=== PATIENT | male | born 1960 | race Caucasian/White ===

== ENCOUNTER 2019-12-30 08:50 | Inpatient (IN) ==
--- NOTE | 2019-12-30 10:30 | PROVIDER DOCUMENTATION ---
HPI-General Adult - General Chief Complaint: Weakness Stated Complaint: flu like sx x4 days Time Seen by Provider: 12/30/19 09:01 Source: patient Allergies/Adverse Reactions: Patient Allergies Allergy/AdvReac Type Severity Reaction Status Date / Time tetracycline Allergy Severe RASH Verified 12/30/19 09:18 cephalexin [Cephalexin] Allergy Intermediate RASH Verified 12/30/19 09:18 Penicillins Allergy Intermediate RASH Verified 12/30/19 09:18 Home Medications: Home Medication List Medication Instructions Recorded Confirmed Last Taken Type Allopurinol 100 mg PO DAILY 06/17/14 12/29/19 02/10/18 History Apixaban [Eliquis] 5 mg PO BID 06/17/14 12/29/19 02/10/18 History Atorvastatin Calcium [Lipitor] 40 mg PO QHS 10/07/14 12/29/19 12/15/17 20:00 History Bupropion S.r. [Wellbutrin Sr] 100 mg PO BID 10/07/14 12/29/19 02/10/18 History Buspirone [Buspar] 5 mg PO TID 12/28/15 12/29/19 02/10/18 History Lisinopril/Hydrochlorothiazide 20 mg PO QAM 12/28/15 12/29/19 02/10/18 History [Lisinopril-Hctz 20-25 mg Tab] Cholecalciferol (Vit D3) [Vitamin 5,000 unit PO DIRECTED 12/16/17 12/29/19 02/10/18 History D] Fenofibrate 160 mg PO HS 02/10/18 12/29/19 02/09/18 21:00 History 160 mg Sotalol HCl [Sotalol] 80 mg PO BID #60 tab 02/13/18 12/29/19 Unknown Rx Budesonide/Formoterol Fumarate 2 puff INH DAILY 12/29/19 12/29/19 Unknown History [Symbicort 160-4.5 Mcg Inhaler] Meclizine HCl [Wal-Dram 2] 25 - 50 mg PO Q6H PRN PRN #20 tab 12/29/19 Unknown Rx Omeprazole 20 mg PO DAILY 12/29/19 12/29/19 Unknown History Sulfamethoxazole/Trimethoprim 1 ea PO BID #20 tab 12/29/19 Unknown Rx [Bactrim Ds Tablet] - History of Present Illness -Gen Adult Nature of Presenting Problems: [id number] presents to the ER with c/o increasing weakness and inability to ambulate. He reports he was seen here yesterday and was sent home with dizziness of unknown cause, unilateral headache and otitis media (left). Patient is very weak on exam, flushed, with productive cough. Location of Pain/Injury: reports: generalized Onset/Duration: reports: 4 days ago Timing: reports: getting worse Associated Symptoms: reports: cough, dizziness, sinus congestion/drainage, weakness, trouble walking Similar Symptoms Previously?: Yes Recently seen or treated by another doctor?: Yes Review of Systems - Adult - REVIEW OF SYSTEMS - ADULT Constitutional: reports: see HPI. denies: chills, fever Eyes: reports: see HPI, blurred vision Ears, Nose, Mouth & Throat: reports: no symptoms reported Cardiovascular: reports: no symptoms reported. denies: chest pain, orthopnea, palpitations Respiratory: reports: see HPI, cough Gastrointestinal: reports: no symptoms reported Genitourinary: reports: no symptoms reported Musculoskeletal: reports: no symptoms reported Integumentary: reports: no symptoms reported Neurological: reports: see HPI, dizziness/vertigo, headache/migraines, loss of balance Psychiatric: reports: no symptoms reported Endocrine: reports: no symptoms reported Hematologic/Lymphatic: reports: no symptoms reported Allergic/Immunologic: reports: no symptoms reported All Other Systems: Reviewed and Negative Past History - Adult - PAST MEDICAL HISTORY-ADULT Review of Records: reports: Old Records Reviewed, Nursing Assessment Review, Medications Reviewed, Social history reviewed & non-contributory. Major Childhood Illnesses: reports: denies history Cardiovascular: reports: A-Fib, HTN, hyperlipidemia, other (cardiac disorder) Respiratory: reports: COPD Gastrointestinal: reports: GERD Obstetrical/Gynecological: reports: denies history Genitourinary: reports: denies history Musculoskeletal: reports: arthritis (gout) Neurological: reports: CVA Psychiatric: reports: depression Endocrine/Immune: reports: denies history Other Conditions: reports: other (gout) - PRIOR SURGERIES/PROCEDURES Surgical/Procedure History: reports: CABG - IMMUNIZATION STATUS Childhood Immunizations: See Nurse Assessment Flu Vaccine: See Nurse Assessment - FAMILY HISTORY Family History: reviewed, not pertinent - SOCIAL HISTORY Smoking: cigarettes, greater than 1 pack/day Provider spent 3-5 mins advising pt. on dangers of tobacco.: Discussed manners to quit use, and f/u contacts for add'l counseling. Substance Use: denies Living Situation: family Physical Exam-General - PHYSICAL EXAM-ADULT Initial Vital Signs Reviewed: Yes - CONSTITUTIONAL General Appearance: moderate distress, slow to respond - EYES Eyes: anisocoria (left eye-pinpoint right eye-3) - HEAD, EARS, NOSE, MOUTH & THROAT HENMT: moist mucous membranes, TMs normal - NECK Neck: full range of motion, supple, normal inspection - RESPIRATORY Respiratory: lungs clear, normal breath sounds - CARDIOVASCULAR Cardiovascular: regular rate, rhythm, no JVD, no murmur - GASTROINTESTINAL (ABDOMEN) Abdominal Exam: non tender, soft - MUSCULOSKELETAL Extremity: normal range of motion, normal gait - SKIN Integumentary: normal color, warm/dry - NEUROLOGIC Neurologic: abnormal gait, other. negative: aphasia (generalized weakness), facial droop - PSYCHIATRIC Psych/Mental Status: normal mood/affect Progress - PLAN OF CARE/RESULTS Progress/Plan/Lab Results: Vital Signs - 8 hr 12/30/19 09:00 Temperature 97.4 F L Pulse Rate 67 Respiratory Rate 17 Blood Pressure 172/100 O2 Sat by Pulse Oximetry 99 Orders Category Date Time Status CHEST-PORTABLE [RAD] Stat Exams 12/30/19 09:56 Ordered CBC WITH ELECTRONIC DIFF [HEME] Stat Lab 12/30/19 09:56 Uncollected COMPREHENSIVE METABOLIC PANEL [CHEM] Stat Lab 12/30/19 09:56 Uncollected LACTATE, PLASMA [CHEM] Stat Lab 12/30/19 09:56 Uncollected UA NIMS W/REFLEX CULT [URINALYSIS] Stat Lab 12/30/19 09:56 Uncollected Result Diagrams: 12/30/19 09:04 12/30/19 09:04 - EKG 1 Time of EKG reading by physician:: 09:12 EKG Read and Signed by:: Dajuan Lau EKG Interpretation (*Must complete 3 of following elements*): Abnormal Rate: 66 Rhythm: NSR [place]: normal QRS: other (prolonged QT) - XRAY 1 XRAY Study: Chest Impression: See EMR Report ( FINDINGS: The lungs are grossly clear. There is stable mild blunting of the right costophrenic angle likely representing mild chronic pleural thickening. There are stable CABG changes. The cardiomediastinal silhouette and central vasculature are unremarkable, otherwise. IMPRESSION: Stable chest with no evidence of acute pathology.) - CT/MRI 1 CT Study: Head Impression: See EMR Report (FINDINGS: The small low dense focus in the ene on the right that may represent a lacunar infarct seen on the recent prior study is unchanged. There is no definite new acute infarct given the limited sensitivity of CT versus MRI since the previous study. There is no discrete intracranial mass, mass effect, or intracranial hemorrhage. The surrounding soft tissues and bony structures are essentially unremarkable. IMPRESSION: Stable focal low dense lesion in the ene on the right and no other change as compared to the recent prior study.) - CONSULTS/PCP/HOSPITALIST Notification #1 *Consult/PCP/Hospitalist*: STEVE Malik Time Discussed: 13:51 Reason/Comments: Leukocytosis, CVA Consult Disposition: Admit Departure - Departure Date of Disposition Decision: 12/30/19 Time of Disposition Decision: 13:50 DIAGNOSIS: Lacunar infarction Leukocytosis, unspecified Qualifiers: Leukocytosis type: unspecified Qualified Code(s): D72.829 - Elevated white blood cell count, unspecified Disposition: ADMITTED INPATIENT 09 Certified Medical Emergency: Emergent Condition: Critical Additional Instructions: ED Follow Up Instructions: You have been treated by a care provider in the Emergency Department. These instructions are being provided to you so you can have an understanding of how to care for yourself upon discharge. Upon discharge from the Emergency Department, you are responsible for making arrangements for follow-up care by a physician of your choice. Take all prescribed medications as directed. Return to the Emergency Department immediately for any new or worsening symptoms. You may call the Physician Referral phone number at [phone] to obtain a list of Physicians who are taking new patients. Referrals and Follow-Ups: Kostas Dickens [Primary Care Provider] - - Critical Care Note This patient required my direct & personal management of CC.: No Attestation - Physician/ ANA Attestation Patient care was provided by Advanced Practice Provider:: Yes Advanced Practice Provider:: William Simmons Advanced Practice Provider documentation review:: The Mid-level provider documentation, treatment plan and medical decision making was reviewed by the physician who agrees with all treatment and medical decision making by the [facility]. The physician spent face to face time with patient:: No Advanced Practice Provider documentation review:: Supervising physician onsite and consulted in the evaluation and care of this patient. The physician did not have a face to face encounter with the patient.
--- NOTE | 2019-12-30 11:24 | Diag Imaging Result Doc PS360 ---
EXAM: CHEST-PORTABLE INDICATION: weakness/cough TECHNIQUE: One view COMPARISON: 02/16/2018 FINDINGS: The lungs are grossly clear. There is stable mild blunting of the right costophrenic angle likely representing mild chronic pleural thickening. There are stable CABG changes. The cardiomediastinal silhouette and central vasculature are unremarkable, otherwise. IMPRESSION: Stable chest with no evidence of acute pathology. Electronically signed by Mikey Ley 12/30/2019 11:22 AM
--- NOTE | 2019-12-30 12:19 | Diag Imaging Result Doc PS360 ---
EXAM: CT HEAD W/CONTRAST INDICATION: weakness TECHNIQUE: This exam was performed using automated exposure control, adjustment of mA or kV according to patient size, and/or use of iterative reconstruction technique. COMPARISON: 12/29/2019 FINDINGS: The small low dense focus in the ene on the right that may represent a lacunar infarct seen on the recent prior study is unchanged. There is no definite new acute infarct given the limited sensitivity of CT versus MRI since the previous study. There is no discrete intracranial mass, mass effect, or intracranial hemorrhage. The surrounding soft tissues and bony structures are essentially unremarkable. IMPRESSION: Stable focal low dense lesion in the ene on the right and no other change as compared to the recent prior study. Electronically signed by Mikey Ley 12/30/2019 12:16 PM
[2019-12-30 12:25] LABS: INR 1.17; PROTIME 15.1 Seconds (11.0-16.0)
[2019-12-30 12:25] LABS: BASO# 0.03 X1000 (0.0-0.2); BASO% 0.2 % (0.0-0.8); HEMATOCRIT 52.7 % (42.0-52.0); HEMOGLOBIN 17.5 g/dL (14.0-18.0); IMM GRAN# 0.04 X1000 (0.0-0.04); IMM GRAN% 0.3 % (0.0-0.5); LYMPH# 1.32 X1000 (1.2-3.4); LYMPH% 8.7 % (20.5-51.1); MCH 27.7 PG (27-31); MCHC 33.2 g/dL (33-37); MCV 83.5 FL (81-99); MONO# 0.41 X1000 (0.11-0.59); MONO% 2.7 % (1.7-9.3); MPV 11.6 FL (7.4-10.4); NEUT# 13.43 X1000 (1.4-6.5); NEUT% 88.1 % (42.2-75.2); PLT 250 X1000 (130-400); RBC 6.31 XMIL (4.7-6.1); RDW 14.4 % (11.5-14.5); WBC 15.23 X1000 (4.8-10.8)
[2019-12-30 12:26] LABS: PTT 33.6 Seconds (22.3-41.8)
[2019-12-30 12:46] LABS: ALBUMIN 4.5 g/dL (3.5-5.0); CALCIUM 9.9 mg/dL (8.8-10.2); CREATININE 1.4 mg/dL (0.7-1.2); POTASSIUM 3.9 mmol/L (3.5-5.1); TOTAL BILIRUBIN 0.45 mg/dL (0.20-1.00); TOTAL PROTEIN 6.7 g/dL (6.3-8.3)
[2019-12-30] MEDS ORDERED: NS 1,000 ML IV ONE (12:48)
[2019-12-30] MEDS ORDERED: ZOFRAN IV PRN (15:18)
[2019-12-30] MEDS ORDERED: NS 1,000 ML IV SCH (15:18)
--- NOTE | 2019-12-30 16:22 | HISTORY AND PHYSICAL ---
PRIMARY CARE PROVIDERS: Kostas Dickens. CHIEF COMPLAINT: Hot, dizzy, unstable balance on and off for the last 4 days. HISTORY OF PRESENT ILLNESS: Mr. Lewis Calvin is a 59-year-old male with a medical history of atrial fibrillation, atrial flutter with ablation and cardioversions in the past, also with history of coronary disease and CABG, diastolic heart failure and stroke which left him with left-sided weakness and memory loss at that time which completely resolved. He has been on Eliquis twice a day. He came in yesterday with these complaints that started around 3 or 4 days ago, he would have a spell where he would get hot, dizzy, would have occipital headache, some nausea, he would have to lay down put a fan on and feel better, would last around 30 minutes to an hour. He came in with these complaints, the head CT at that time showed that he had right- sided ene, possibly chronic or subacute lacunar infarct however it was not definitive. He was also found to have left otitis media with effusion. Was educated on stopping smoking and then went home on antibiotic therapy. He returned today as symptoms returned once again although this time he had issues where he felt like he could not swallow well, started having some double vision with it and now his right pupil is larger than his left pupil and he has got nystagmus in addition to the symptoms. He has got right-sided numbness, he has got right peripheral vision loss and a repeat head CT showed stable focal low-dense lesion on the ene on the right so he will be admitted for further treatment and evaluation and further stroke workup. Currently he is in sinus rhythm. It could be that he is going in an out of irregular heart rhythm increasing his risk for new strokes. PAST MEDICAL HISTORY: 1. CVA in the past that left him with some left-sided weakness and memory loss but that is resolved. 2. Coronary disease with coronary artery bypass grafting in 2012. 3. Atrial fibrillation, atrial flutter history, had ablation in 2012 not at the same time as the bypass surgery and then had cardioversion in 2014. 4. Chronic diastolic heart failure. 5. Hypertension. 6. Dyslipidemia. 7. Peptic ulcer disease. 8. GERD. 9. Gout. 10. Depression. SURGICAL HISTORY: 1. Coronary artery bypass grafting x3 in 2012. 2. Cardiac ablation and also in 2013 it is 3 months after his bypass. 3. Direct current CV. 4. Tonsillectomy, adenoidectomy. SOCIAL HISTORY: Half pack per day smoker started in his teens. He drinks 2 to 3 beers around 3 or 4 days per week. Denies any illicit drug use. He lives at home alone. He is not working, no children. FAMILY HISTORY: Mother hypertension. Father at 58 but he was unsure of any of his medical history. A sister at 50 with coronary artery disease and had diabetes. Had another brother with coronary artery disease. ALLERGIES: Tetracycline, cephalexin and penicillins. HOME MEDICATIONS: Not yet reconciled but he is on Eliquis. REVIEW OF SYSTEMS: Fourteen point review of systems are complete and all were negative for those mentioned above HPI. PHYSICAL EXAMINATION: VITAL SIGNS: Temperature 97.4 degrees, heart rate 67, respiratory rate 17, blood pressure 172/100, O2 saturation 99% on room air, the sitting heart rate 69, blood pressure 154/92, the standing actually it looks like supine they only recorded supine, sitting and supine, supine heart rate 69, blood pressure 179/67, 5 feet 9 inches tall, 200 pounds with BMI of 29.5. GENERAL: Mr. Lewis Calvin is a 59-year-old male who is in no acute distress is able answer questions appropriately. HEENT: Atraumatic, normocephalic. Pupils are unequal, right is a 5, left is a 3, both reactive. He has got severe nystagmus of the eyes. He has got right peripheral vision loss. Tongue is midline. Smile is equal . NECK: Trachea midline. CARDIOVASCULAR: S1, S2. Regular rate and rhythm. No rubs, gallops, murmurs. No lower extremity edema. +2 dorsalis and radial pulses. Negative JVD or carotid bruits. PULMONARY: Clear to auscultate, bilateral breath sounds. No accessory muscle use or work of breathing noted. GI: Soft, nontender, nondistended. Positive bowel sounds x4. EXTREMITIES: He moves all extremities equally. Amoi-jh-oyji is normal on both lower extremities. Adoj-oi-aaytim is off on the left upper extremity. NEUROLOGIC: Oriented x3, follows commands. Decreased sensory on the right side of his face all the way down his right side of his body. Again pupils are unequal, right is greater than left. There is a significant nystagmus, right peripheral visual loss. Tongue midline. Strength equal. SKIN: Warm, dry, intact. LABORATORY DATA: White blood cells 15,000, hemoglobin 17, hematocrit 52, platelet count 250,000. INR is 1.17, PTT is 33.6. Sodium 138, potassium 3.9, BUN 22, creatinine is 1.4, glucose 99, calcium 9.9, bilirubin 0.45, AST 14, ALT 16, albumin 4.5. Influenza swab A and B negative. IMAGING: Head CT stable focal low-dense lesion on the ene on the right. No other changes compared to the most recent study, is a lacunar infarct on the right ene. The EKG there was normal sinus rhythm. Rate was 66. Chest x-ray, no acute findings, it was stable. ASSESSMENT AND PLAN: 1. Right-sided ene acute to subacute cerebrovascular accident with balance issues, nystagmus, visual changes, also complains of swallowing difficulties, double vision. Will consult neuro, get MRI, MRA tomorrow morning. He has recently had a carotid in September. Will do PT, OT, ST, monitor him more closely on PVC, allow for permissive hypertension. Will hold off on the Eliquis for now. 2. History of atrial fibrillation, atrial flutter with cardioversions and ablation has been on Eliquis, will hold off on that. He is sinus rhythm. Will put him on telemetry, make sure he is not going and out increasing his risk, will also order echocardiogram. 3. History of chronic diastolic heart failure. Again, we are going to order an echocardiogram. 4. Hypertension. We are allowing for permissive hypertension for now. 5. Dyslipidemia. Statins resumed. 6. Peptic ulcer disease and gastroesophageal reflux disease, will continue with PPI. 7. Deep vein thrombosis prophylaxis SCDs for now. 8. Tobacco abuse cessation discussed. 9. Left Otitis Media with effusion and leukocytosis. Will order an antibiotic. Dictated by STEVE Antoine for Stoney Mcknight MD cc: STEVE Antoine MD [facility]
--- NOTE | 2019-12-30 17:28 | EKG Report ---
Test Performed on : 12/30/2019 09:12:21 AM Test Reason : CP Blood Pressure : / mmHG Vent. Rate : 066 BPM Atrial Rate : 066 BPM P-R Int : 190 ms QRS Dur : 092 ms QT Int : 472 ms P-R-T Axes : 067 070 103 degrees QTc Int : 494 ms Normal sinus rhythm. Nonspecific T wave abnormality Prolonged QT Abnormal ECG When compared with ECG of 29-DEC-2019 19:49, (Unconfirmed) Nonspecific T wave abnormality now evident in Anterior leads Unconfirmed Result
[2019-12-30] MEDS: ZITHROMAX 500 MG/NS 500 MG/250 ML IVPB IV SCH (18:39)
--- NOTE | 2019-12-30 19:42 | HISTORY AND PHYSICAL ---
HISTORY OF PRESENT ILLNESS: Mr. Calvin came in with dizziness and instability of balance for the last 4 days. Apparently, his CT scan initially was done yesterday, where he was treated for otitis media, showed a pontine infarct. I have got nothing to compare it to. The head CT looked old. It could be chronic and it says it is possible it is even artifactual or a subacute lacunar infarct. He has been having vision disturbances, dizziness, so it certainly could be that he has had that, but it is not completely clear either. In any case, he will be admitted to rule out stroke. There is question that he has otitis media. I did not have the equipment to examine his tympanic membrane, but we will do that. MRI, I think, will answer the question of whether this is an acute process or old. According to this, it looks like he had impacted cerumen. I cannot tell that he got steroids. They put him on Bactrim and meclizine. I cannot tell if he got any steroids. Now his white count is very high. I guess we will do a discontinued panel, and I do not see where he got any steroids. He did get some Dilaudid. Some of the home medications are very old medications, but in any case, we will continue to follow very closely. If he has had a major stroke, we may consider Neurology consult and then reestablishing treatment. I am going to hold his Eliquis, if this is an ischemic stroke, just because of concern over bleeding, but we will continue to follow. cc: Stoney Mcknight MD
[2019-12-30] MEDS ORDERED: LIPITOR PO SCH (21:00)
[2019-12-30] MEDS: NS 1,000 ML IV SCH (21:03)
[2019-12-31 05:34] LABS: URINE SOURCE CATH
[2019-12-31 05:37] LABS: BILIRUBIN URINE NEGATIVE (NEGATIVE); BLOOD URINE NEGATIVE (NEGATIVE); COLOR YELLOW; GLUCOSE URINE NEGATIVE (NEGATIVE); KETONE URINE NEGATIVE (NEGATIVE); LEUKOCYTES URINE NEGATIVE (NEGATIVE); NITRITE URINE NEGATIVE (NEGATIVE); PH URINE 6.5; PROTEIN URINE NEGATIVE (NEGATIVE); SP GRAVITY URINE 1.016; TURBIDITY URINE CLEAR (CLEAR); UROBILINOGEN URINE NORMAL (NORMAL)
[2019-12-31 05:38] LABS: UR EPITHELIAL CELLS <10 /HPF (<10); URINE BACTERIA NEGATIVE /HPF; URINE RBC <10 /HPF (<10); URINE WBC <10 /HPF (<10)
[2019-12-31 06:38] LABS: HEMOGLOBIN 16.4 g/dL (14.0-18.0); IMM GRAN% 0.3 % (0.0-0.5)
[2019-12-31 06:46] LABS: HEMOGLOBIN A1C 5.3 % (4.8-6.0)
[2019-12-31 07:06] LABS: AGAP 11; ALB/GLOB RATIO 1.6; ALBUMIN 3.9 g/dL (3.5-5.0); ALKALINE PHOSPHATASE 66 U/L (32-122); BUN 21 mg/dL (8-22); CALCIUM 9.1 mg/dL (8.8-10.2); CHLORIDE 105 mmol/L (98-107); COSMO 286; CREATININE 1.2 mg/dL (0.7-1.2); ESTIMATED GFR > 60; GLUCOSE 100 mg/dL (70-104); GOT 18 U/L (10-34); GPT 16 U/L (10-44); POTASSIUM 3.9 mmol/L (3.5-5.1); SODIUM 142 mmol/L (136-145); TCO2 26 mmol/L (25-35); TOTAL BILIRUBIN 0.39 mg/dL (0.20-1.00); TOTAL PROTEIN 6.3 g/dL (6.3-8.3)
[2019-12-31 07:30] LABS: BASO# 0.06 X1000 (0.0-0.2); BASO% 0.4 % (0.0-0.8); EOS# 0.03 X1000 (0.0-0.7); EOS% 0.2 % (0.0-10.0); HEMATOCRIT 49.7 % (42.0-52.0); IMM GRAN# 0.04 X1000 (0.0-0.04); LYMPH# 2.75 X1000 (1.2-3.4); LYMPH% 17.4 % (20.5-51.1); MCH 28.3 PG (27-31); MCV 85.8 FL (81-99); MONO# 0.83 X1000 (0.11-0.59); MONO% 5.2 % (1.7-9.3); MPV 11.5 FL (7.4-10.4); NEUT# 12.14 X1000 (1.4-6.5); NEUT% 76.5 % (42.2-75.2); PLT 229 X1000 (130-400); RBC 5.79 XMIL (4.7-6.1); RDW 14.8 % (11.5-14.5); WBC 15.85 X1000 (4.8-10.8)
[2019-12-31 09:10] LABS: LYMPHS 18 % (21-51); MONO 3 % (1-9); SEGS 79 % (42-75)
[2019-12-31] MEDS: NS 1,000 ML IV SCH ×2 (09:33→15:28)
--- NOTE | 2019-12-31 09:44 | Diag Imaging Result Doc PS360 ---
MRI BRAIN W/WO CONTRAST - 12/31/2019 INDICATION: stroke COMPARISON: Head CT 12/30/2019 FINDINGS: There is mild to moderate patient motion artifact. There is a small, old lacunar at the right side of the ene. This corresponds with a head CT finding. There is no area of restricted diffusion. Otherwise, the ventricles and sulci are normal in size and contour. No intracranial mass or hemorrhage. No abnormal contrast enhancement. Midline structures are normal. IMPRESSION: Small, apparently old lacunar in the right side of the ene. No acute process. Electronically signed by Enrique Jj 12/31/2019 9:41 AM
--- NOTE | 2019-12-31 09:45 | Diag Imaging Result Doc PS360 ---
MRA BRAIN W/O CONTRAST - 12/31/2019 INDICATION: stroke TECHNIQUE: Noncontrast time of flight technique was used COMPARISON: None FINDINGS: There is significant patient motion artifact. The intracranial arteries are grossly normal. No occlusion or significant stenosis. No large aneurysm. IMPRESSION: Negative exam. Electronically signed by Enrique Jj 12/31/2019 9:42 AM
--- NOTE | 2019-12-31 10:42 | NEUROLOGY CONSULTATION ---
DATE: 12/31/2019 Mr. Calvin is 59 years old and he reports recent onset of dizziness, unsteady gait, slurred speech, trouble swallowing, left facial numbness, clumsiness in the left arm greater than baseline, blurred vision. He reports noticing 4 or 5 days ago that he had some dizziness and felt unsteady. He felt bad over the next few days and was nauseated. Yesterday, he noted clumsiness in the left arm, numbness over the left face beginning around the cheek but then involving most of the left side of his head. He noticed a little bit of slurred speech. He did not have trouble chewing but he got choked when he tried to swallow. He noticed his vision would "jump around" and seemed blurred. At times, there was double vision, mostly vertical. He did not do cover/uncover and he did not check his gaze in one direction against another to see if those maneuvers had any affect on his diplopia. He felt bad but was never really lightheaded. There was never altered consciousness, altered awareness, collapse, or memory gap. He felt worse through the day yesterday. This morning, he is stable with no further progression. He reports history of stroke diagnosed in approximately 2006 with sudden onset of left limb weakness, unsteady gait, left facial droop. He does not now recall associated vision disturbance, speech difficulty, swallowing difficulty then. He reports significant but incomplete recovery after that stroke. He has not had any other diagnosed stroke. He reports having some episodes of lightheadedness, sometimes to the point of collapse and possible brief unconsciousness. Last of these episodes occurred approximately a year ago, by his report. These episodes were not associated with focal neurologic feature. He generally did not seek medical attention for these episodes. There is past history of atrial fibrillation, ischemic heart disease, CABG, hypertension, dyslipidemia. He smokes cigarettes. His home medication list includes 14 entries and he reports that is correct. Of these, [employer] active medicines include bupropion and buspirone, and he reports taking those correctly. He has been taking Eliquis chronically and he takes a dose of over-the- counter headache pain reliever medicine containing aspirin at least 2 or 3 days most weeks. He has never been prescribed daily aspirin or clopidogrel. He has not had any bruising or bleeding complications. He has been afebrile here. Heart rate has ranged 60s to 80s. Systolic blood pressures have ranged 150s to 170s. Initial noncontrast CT showed right pontine infarction which appears to be not acute. Brain MRI is ordered. Carotid ultrasound done September, was unremarkable. On exam, Mr. Calvin is awake, alert, attentive, and appropriate. Speech is a little bit dysarthric but easily understood. Language function is intact. Memory is good. He is oriented. Head and neck are unremarkable. Neck is supple. He has inconsistent performance on visual field testing. When this is performed monocularly, he has consistent full field bilaterally. When he has both eyes open, he is more inconsistent with counting fingers in the left field than the right. He has full lateral eye movement. There is incomplete elevation of the right eye. He reports diplopia which is consistently vertical and consistently maps out to right eye problem with cover/uncover testing. The left nasolabial fold is less prominent than the right. Tongue is midline. Facial sensation is intact. Gag is intact. Palate is midline. Shoulder shrug is good bilaterally. He has good power in the right limbs. I can overcome the left limbs, grading 4/5 at the deltoid and at the iliopsoas. Tone seems diminished in the left arm but that is inconsistent. He did well with right [id number]. He had slight difficulty with right [id number]. He had significant difficulty with left [id number] and even greater difficulty with left qcwn-[id number]. He reports good pinprick appreciation over the left limbs and diminished pinprick appreciation over the right palm and foot. Proprioception is good at the great toe MTP joint bilaterally and at the second finger PIP joint bilaterally. I did not test his gait. Plantar response is silent bilaterally. Reflexes are 2+ at the ankles, 3+ at the left knee, 2+ at the right knee, 2+ symmetrically at the wrists. IMPRESSION: 1. Left hemiparesis and left hemiataxia. He reports these problems are significantly worse than baseline. This seems most consistent with acute ischemic infarction. Diplopia is vertical and would usually be upper brainstem etiology. Associated dysphagia and nausea raise possibility of medullary lesion. The possibility that he has right-sided sensory deficit with new left-sided motor deficit raises question of lesion in the lower brainstem or upper cervical cord. CT would not necessarily show recent infarction and might not show a brainstem or cerebellar lesion. I will check on the MRI report. If we do not find an answer on brain MRI, we might consider cervical MRI. 2. Prior stroke with left hemiparesis and incomplete recovery. This is likely related to the right pontine lesion noted on CT which appears to be not acute. 3. Spells of lightheadedness and collapse, not sure these were neurologic. 4. Risk factors for cerebrovascular ischemic problems including atrial fibrillation, dyslipidemia, hypertension, ischemic heart disease, cigarette smoking. I strongly encouraged him to stop smoking cigarettes and to be aggressive with management of his other problems. I believe that he has echocardiogram ordered. I would continue aggressive management of lipids, follow blood sugar, treat blood pressure cautiously until we get workup completed. Thanks for asking neurology to see Mr. Calvin. cc: MD VERN Mccall III
[2019-12-31] MEDS: ASPIRIN PO SCH (10:54)
[2019-12-31] MEDS ORDERED: BUSPAR PO PRN (10:57)
--- NOTE | 2019-12-31 15:07 | PROGRESS NOTE ---
DATE: 12/31/2019 1. The patient is still complaining of dizziness. He still has horizontal beating nystagmus. He has hemiataxia, hemiparesis, and an acute infarct which is concern over brainstem medullary infarct. CT showed no recent one, but MRI showed old infarct in the right ene, but no acute process. Lightheadedness and things of that nature. I am not sure exactly how we are going to fix his problem because we are not sure how old this is. In any case, we will continue to follow. He has not had a workup per se of this so we will pursue that. 2. We will continue with PT and occupational therapy. 3. CAD. Continue treatments and follow closely. He has atrial fibrillation, but there is no acute stroke so I think we can resume his Eliquis. 4. Otitis media. It is not clear to me. He does have a lot of inflammation in his external auditory meatus, but I do not clearly see otitis, but he is on azithromycin. We will continue to follow. cc: Stoney Mcknight MD
[2019-12-31] MEDS: SYMBICORT 160/4.5 MICROGM INHALER INH SCH (16:41)
[2019-12-31] MEDS: ZITHROMAX 500 MG/NS 500 MG/250 ML IVPB IV SCH (17:55)
[2019-12-31] MEDS ORDERED: ELIQUIS PO SCH (21:00)
[2019-12-31] MEDS: BETAPACE PO SCH (21:44)
[2019-12-31] MEDS: WELLBUTRIN SR PO SCH (21:45)
[2019-12-31] MEDS: LIPITOR PO SCH (21:45)
[2019-12-31] MEDS: PRINZIDE 10/12.5MG PO SCH (21:45)
[2019-12-31] MEDS: LOFIBRA PO SCH (21:45)
--- NOTE | 2020-01-01 00:18 | ECHO REPORT ---
ORDER DATE: 12/30/2019 MEASUREMENTS: Septal thickness 1.4, left ventricular internal diameter in diastole 4.5 wall thickness 1.3, left ventricular internal diameter in systole 3.1, aortic root 3.0, left atrium 3.8. SUMMARY: 1. Technically difficult study due to limited acoustic window quality. 2. Aortic valve is trileaflet and opens normally on 2-dimensional images. Peak gradient across aortic valve is less than 10 mmHg. Mitral and tricuspid valves are without evidence of structural abnormality while pulmonic valve is not well demonstrated. Aortic root is normal size. 3. Mitral and tricuspid valves are without evidence of structural abnormality while pulmonic valve is not well demonstrated. There is mild mitral regurgitation. Aortic root is normal size. 4. Normal left ventricular chamber size with mild concentric left hypertrophy is demonstrated. Estimated left ventricular ejection fraction appears to be at least 65%. No regional wall motion abnormality can be appreciated. Left atrium, right atrium, right ventricle are normal size with normal right ventricular systolic function. 5. No pericardial effusion. 6. Appearance of inferior vena cava suggests normal central venous pressure. CONCLUSIONS: 1. Technically difficult study. 2. Mild mitral regurgitation. 3. Mild concentric left ventricular hypertrophy with estimated left ventricular ejection fraction at least 65%. cc: MD Helena Hernandez CRNP
[2020-01-01] MEDS: NS 1,000 ML IV SCH ×3 (01:44→17:44)
[2020-01-01 06:25] LABS: BASO# 0.09 X1000 (0.0-0.2); BASO% 1.1 % (0.0-0.8); EOS# 0.04 X1000 (0.0-0.7); EOS% 0.5 % (0.0-10.0); HEMATOCRIT 51.2 % (42.0-52.0); HEMOGLOBIN 16.6 g/dL (14.0-18.0); IMM GRAN# 0.02 X1000 (0.0-0.04); IMM GRAN% 0.2 % (0.0-0.5); LYMPH# 2.16 X1000 (1.2-3.4); LYMPH% 26.2 % (20.5-51.1); MCH 27.9 PG (27-31); MCHC 32.4 g/dL (33-37); MCV 86.2 FL (81-99); MONO# 0.47 X1000 (0.11-0.59); MONO% 5.7 % (1.7-9.3); MPV 11.2 FL (7.4-10.4); NEUT# 5.48 X1000 (1.4-6.5); NEUT% 66.3 % (42.2-75.2); PLT 189 X1000 (130-400); RBC 5.94 XMIL (4.7-6.1); RDW 14.4 % (11.5-14.5); WBC 8.26 X1000 (4.8-10.8)
[2020-01-01 06:43] LABS: AGAP 13; ALB/GLOB RATIO 1.7; ALBUMIN 3.8 g/dL (3.5-5.0); ALKALINE PHOSPHATASE 41 U/L (32-122); BUN 19 mg/dL (8-22); CHLORIDE 101 mmol/L (98-107); COSMO 280; CREATININE 1.1 mg/dL (0.7-1.2); ESTIMATED GFR > 60; GLUCOSE 76 mg/dL (70-104); GOT 19 U/L (10-34); GPT 17 U/L (10-44); POTASSIUM 3.8 mmol/L (3.5-5.1); SODIUM 140 mmol/L (136-145); TCO2 26 mmol/L (25-35); TOTAL BILIRUBIN 0.45 mg/dL (0.20-1.00); TOTAL PROTEIN 6.1 g/dL (6.3-8.3)
[2020-01-01] MEDS: PRILOSEC PO SCH (06:52)
[2020-01-01] MEDS: SYMBICORT 160/4.5 MICROGM INHALER INH SCH (08:08)
[2020-01-01] MEDS: LOPRESSOR IV SCH ×4 (10:38→22:00)
[2020-01-01] MEDS ORDERED: LOVENOX SUBQ SCH (11:45)
--- NOTE | 2020-01-01 13:00 | NEUROLOGY PROGRESS NOTE ---
DATE: 01/01/2020 Mr. Calvin reports less dizziness and improved speech and swallowing today. He believes his vision may be a little bit improved but he still sees double at times. Brain MRI shows acute left lateral medullary infarction to explain his clinical syndrome. On exam, he is awake, alert, attentive. Speech is not significantly dysarthric right now. He has slightly limited elevation of the right eye. Diplopia is not as prominent as yesterday. The horizontal nystagmus is still prominent, particularly when he tries to focus vision. Left extraocular movement is good. The ataxia is less prominent in the left limbs today than yesterday but still present. There is no new neurologic deficit on bedside exam. 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 He has risk factors as reviewed with him today including prior stroke and atrial fibrillation, ischemic heart disease, hypertension. I encouraged him to be aggressive with management of those problems and to take his medicines as directed. He should be careful with OTC products containing aspirin while fully anticoagulated. I do not have any suggestion for urgent neurologic workup now. Thanks for asking neurology to see Mr. Calvin. cc: MD VERN Mccall III
[2020-01-01] MEDS: ASPIRIN PO SCH (15:52)
[2020-01-01] MEDS: BETAPACE PO SCH (15:53)
[2020-01-01] MEDS: NORVASC PO SCH (15:53)
[2020-01-01] MEDS: PRINZIDE 10/12.5MG PO SCH (15:54)
[2020-01-01] MEDS: WELLBUTRIN SR PO SCH (15:54)
[2020-01-01] MEDS: ZYLOPRIM PO SCH (15:54)
[2020-01-01] MEDS: ZITHROMAX 500 MG/NS 500 MG/250 ML IVPB IV SCH (17:44)
--- NOTE | 2020-01-01 18:33 | PROGRESS NOTE ---
DATE: 01/01/2020 OBJECTIVE: Cardiovascular: Regular rate and rhythm. Pulmonary: Bilateral breath sounds, clear to auscultation. GI was soft, nontender, nondistended. Bowel sounds are positive. LABORATORY DATA: White count 8, hemoglobin and hematocrit 16 and 51, platelets 189,000. Basic was normal. ASSESSMENT AND PLAN: 1. Dizziness, with possible subacute pontine infarct. MRI did not show anything acute. He still has dizziness and fairly significant horizontal nystagmus and weakness. Dr. Craig feels this is an acute lateral left medullary infarct, and he is on treatment; however, his swallowing has been compromised, possibly a dysphagia. We are waiting on a repeat swallowing study tomorrow. We were not able to accomplish it today due to technical difficulties, so we will continue treatment. 2. Putative otitis media. He is on azithromycin. 3. History of atrial fibrillation. He is on sotalol, but has not been able to take it because of his other issues, so we will pursue. He is on intravenous Lopressor for the time being. If he cannot be treated, he may require intravenous Cardizem. We are going to continue to follow closely. cc: Stnoey Mcknight MD
[2020-01-02] MEDS: LOPRESSOR IV SCH ×6 (01:48→22:30)
[2020-01-02] MEDS: BETAPACE PO SCH ×3 (02:46→21:33)
[2020-01-02] MEDS: LIPITOR PO SCH ×2 (02:47→21:33)
[2020-01-02] MEDS: WELLBUTRIN SR PO SCH ×3 (02:47→21:33)
[2020-01-02] MEDS: LOFIBRA PO SCH ×2 (02:47→21:34)
[2020-01-02] MEDS: PRINZIDE 10/12.5MG PO SCH ×3 (02:47→21:34)
[2020-01-02] MEDS: NS 1,000 ML IV SCH ×2 (02:48→16:06)
[2020-01-02] MEDS: PRILOSEC PO SCH (06:35)
[2020-01-02 06:58] LABS: BASO# 0.06 X1000 (0.0-0.2); BASO% 0.8 % (0.0-0.8); EOS# 0.06 X1000 (0.0-0.7); EOS% 0.8 % (0.0-10.0); HEMATOCRIT 49.3 % (42.0-52.0); HEMOGLOBIN 16.2 g/dL (14.0-18.0); IMM GRAN# 0.02 X1000 (0.0-0.04); IMM GRAN% 0.3 % (0.0-0.5); LYMPH# 1.91 X1000 (1.2-3.4); LYMPH% 25.3 % (20.5-51.1); MCH 27.9 PG (27-31); MCHC 32.9 g/dL (33-37); MONO# 0.55 X1000 (0.11-0.59); MONO% 7.3 % (1.7-9.3); NEUT# 4.96 X1000 (1.4-6.5); NEUT% 65.5 % (42.2-75.2); PLT 181 X1000 (130-400); RDW 13.9 % (11.5-14.5); WBC 7.56 X1000 (4.8-10.8)
[2020-01-02 07:25] LABS: AGAP 13; ALB/GLOB RATIO 1.6; ALBUMIN 3.9 g/dL (3.5-5.0); ALKALINE PHOSPHATASE 47 U/L (32-122); BUN 20 mg/dL (8-22); CALCIUM 9.2 mg/dL (8.8-10.2); CHLORIDE 102 mmol/L (98-107); COSMO 281; ESTIMATED GFR > 60; GLUCOSE 79 mg/dL (70-104); GOT 23 U/L (10-34); GPT 20 U/L (10-44); POTASSIUM 3.9 mmol/L (3.5-5.1); SODIUM 140 mmol/L (136-145); TCO2 25 mmol/L (25-35); TOTAL BILIRUBIN 0.63 mg/dL (0.20-1.00); TOTAL PROTEIN 6.4 g/dL (6.3-8.3)
[2020-01-02] MEDS ORDERED: VITAMIN D PO SCH (09:00)
[2020-01-02] MEDS ORDERED: ELIQUIS PO SCH (10:45)
[2020-01-02] MEDS: ASPIRIN PO SCH (12:14)
[2020-01-02] MEDS: ZYLOPRIM PO SCH (12:17)
--- NOTE | 2020-01-02 12:55 | NEUROLOGY PROGRESS NOTE ---
DATE: 01/02/2020 SUBJECTIVE: Mr. Calvin is in room 301 now. Mr. Calvin reports continued trouble swallowing, but it may be a little bit better. He was able to stand with assistance and take a few steps, but felt unsteady. He has not noticed any new neurologic problem. Vision is improved since admission, but not back to baseline. Systolic blood pressures have been stable 140s to 180s today. OBJECTIVE: On exam, his speech is not significantly dysarthric right now. He did well with guttural sounds and voluntary throat movement. He was able to gargle. I did not test swallowing. I did not test visual acuity or miles today, but he does report his vision improves with covering either eye. IMPRESSION AND PLAN: Lateral medullary syndrome, stable and improving clinically. Risk factors as reviewed. I do not have any new suggestion from Neurology standpoint. I encouraged him to be careful with any activities, to temporarily patch one eye if vision is not clear when performing tasks requiring good vision, to take his medicines as directed and to be aggressive with management of his risk factors. Thanks for asking Neurology to see Mr. Calvin. cc: MD VERN Mccall III
--- NOTE | 2020-01-02 15:25 | PROGRESS NOTE ---
DATE: 01/02/2020 INTERVAL HISTORY: The patient still with some pretty significant nystagmus. Dizziness somewhat improved. No vomiting. Going down for barium swallow later today. No new complaints. No acute events overnight. REVIEW OF SYSTEMS: Twelve point review of systems negative except as per interval history. LABS: CBC and complete metabolic panel unremarkable. VITALS: T-max 98.6 degrees, pulse 64, respirations 20, blood pressure 171/98, O2 saturation 99% on room air. PHYSICAL EXAMINATION: General: No acute distress. Vitals: As above. HEENT: Normocephalic, atraumatic. Slightly asymmetric pupils noted as below. Cardiovascular: Regular rate and rhythm. No murmurs noted. Pulmonary: Clear to auscultation bilaterally. No wheezing, rales, or rhonchi. Abdomen: Soft, nontender, nondistended. Bowel sounds positive. Extremities: Peripheral pulses intact. No clubbing or cyanosis. Neurologic: Right pupil larger than the left. Slightly sluggish. Significant horizontal nystagmus noted. Speech pretty clear and appropriate. Left side a little weak and ataxic. Psychiatric: Awake, alert, oriented x3. ASSESSMENT AND PLAN: 1. Subacute stroke with lateral medullary syndrome. Dizziness and ataxia improving. Speech much improved. No nystagmus still pretty significant. Did fairly poor with swallow screen yesterday. Getting barium swallow for better evaluation today. If he does well with the barium swallow, he may be able to be discharged home. If he does very poorly with the barium swallow, then may need to be evaluated for PEG tube placement. We will see how that comes back and go from there. 2. Dysphagia secondary to stroke as above. Currently n.p.o. for barium swallow. 3. Otitis media, improving on azithromycin. 4. Paroxysmal atrial fibrillation. Normal sinus rhythm currently. Continue Eliquis and metoprolol and sotalol. 5. Acute kidney injury, resolved.
--- NOTE | 2020-01-02 15:53 | Diag Imaging Result Doc PS360 ---
EXAM: BA SWALLOW W/VIDEO SPEECH THER INDICATION: failed bedside swallow TECHNIQUE: COMPARISON: None. FINDINGS: Upon swallowing thin liquid barium, there was mild aspiration. There is an extrinsic filling defect at the posterior aspect of the upper esophagus suggesting cricopharyngeus spasm. There was a marked delay of bolus propagation with barium of pudding consistency with barium layering in the piriform sinuses. There was airway penetration of pudding consistency barium. IMPRESSION: 1.Cricopharyngeus spasm. 2.Marked delay of bolus propagation with pooling of barium in the piriform sinuses, which is probably related to known brainstem infarct. 3.Penetration of pudding consistency barium and mild aspiration of thin liquid barium. 4.Please see speech pathology report for full details. Electronically signed by Mikey Ley 01/02/2020 3:51 PM
[2020-01-02] MEDS: NORVASC PO SCH (16:26)
[2020-01-02] MEDS: LOVENOX SUBQ SCH (17:04)
[2020-01-02] MEDS: SYMBICORT 160/4.5 MICROGM INHALER INH SCH (17:15)
[2020-01-02] MEDS: ZITHROMAX 500 MG/NS 500 MG/250 ML IVPB IV SCH (17:35)
[2020-01-03] MEDS: LOPRESSOR IV SCH ×6 (01:35→22:09)
[2020-01-03] MEDS: NS 1,000 ML IV SCH ×2 (04:36→14:17)
[2020-01-03] MEDS: LOVENOX SUBQ SCH ×2 (05:41→15:46)
[2020-01-03] MEDS: PRILOSEC PO SCH (06:08)
[2020-01-03] MEDS: PRINZIDE 10/12.5MG PO SCH ×2 (09:51→23:20)
[2020-01-03] MEDS: WELLBUTRIN SR PO SCH ×2 (09:51→23:19)
[2020-01-03] MEDS: BETAPACE PO SCH ×2 (09:51→23:18)
[2020-01-03] MEDS: NORVASC PO SCH (09:51)
[2020-01-03] MEDS: ASPIRIN PO SCH (09:51)
[2020-01-03] MEDS: ZYLOPRIM PO SCH (09:52)
--- NOTE | 2020-01-03 10:25 | GASTROENTEROLOGY CONSULTATION ---
DATE: 01/03/2020 REASON FOR CONSULTATION: Stroke-related dysphagia, likely PEG placement. HISTORY OF PRESENT ILLNESS: Mr. Calvin is a 59-year-old male with a past medical history of atrial fibrillation, atrial flutter with ablation and cardioversions, coronary artery disease status post stent placement, congestive heart failure and a stroke in the past which the patient mentioned that he had some left-sided weakness and loss of memory which has been resolved. The patient is on Eliquis 5 mg twice a day. The patient came to the hospital on 12/30/2019 with complaints of dizzy spell, headache and some nausea. The patient mentioned that he felt like he had a stroke on Tuesday because he had the same symptoms he had earlier when he had a stroke. The patient has been complaining that the moment he tries to move around, he feels dizzy. He has denied any nausea and vomiting currently. He has some left-sided weakness but he mentions that he still feels that the whole face is numb. The patient was able to squeeze my hand and lift his legs. He just complains that he is not able to stand by himself and walk comfortably. The patient's last bowel movement was on Tuesday. Prior to this, the patient said that he was active. He could mow the lawn, he could drive and get his groceries by himself and do all the chores in the house. Currently he is disabled and he lives by himself. A head CT on 12/30/2019 showed stable focal low-dense lesion in the ene on the right and no other change as compared to the recent prior study. Echocardiogram has shown that patient has mild mitral regurgitation, mild concentric left ventricular hypertrophy with estimated left ventricular ejection fraction of at least 65%. Brain MRA showed negative exam. Brain MRI showed small, apparently old lacunar in the right side of the ene. No acute process. The patient had a barium swallow evaluation with Speech and it showed that he had some cricopharyngeal spasm, marked delay of bolus propagation with pooling of barium in the piriform sinuses, which is probably related to the known brainstem infract, penetration of pudding consistency barium and mild inspiration of thin liquid barium. Speech study showed that the patient appears unable to adequately protect his airways when swallowing. Recommendation is to restrict p.o. intake to sips of water and ice chips. PAST MEDICAL HISTORY: CVA with left-sided weakness and memory loss which is resolved, coronary artery disease with bypass in 2013 and stents, atrial fibrillation, atrial flutter status post ablation and cardioversion, congestive heart failure, hypertension, hyperlipidemia, peptic ulcer disease, gout, depression. PAST SURGICAL HISTORY: Bypass surgery, stents placed, cardiac ablation, cardioversion, tonsillectomy, and adenectomy. ALLERGIES: Tetracyclines, cephalexin and penicillin. SOCIAL HISTORY: The patient is a , disabled, lives alone. Smokes half a pack of cigarettes daily and drinks 2 to 3 beers almost daily. FAMILY HISTORY: Positive for heart disease. HOME MEDICATIONS: Eliquis 5 mg twice a day, allopurinol 100 mg daily, Atorvastatin 40 mg p.o. bedtime, Wellbutrin 100 mg p.o. twice a day, BuSpar 5 mg p.o. 3 times a day, lisinopril/hydrochlorothiazide 20 mg p.o. twice a day, vitamin D 5000 units as directed, fenofibrate 160 mg p.o. at bedtime, sotalol 80 mg p.o. twice a day, Symbicort 2 puffs inhalation daily, Prilosec 20 mg 1 capsule daily, amlodipine 5 mg p.o. daily, vitamin B12 1000 mcg injection every 12 weeks, ProAir 8.5 g inhalation daily. REVIEW OF SYSTEMS: The patient has weakness on the left side, numbness in the face. Pupils are sluggish and unequal, right larger than the left. PHYSICAL EXAMINATION: Vital Signs: Temperature 98 degrees, pulse 64, respirations 18, blood pressure 167/89, oxygen saturation 98% on room air. The patient's weight is 201 pounds, BMI is 29.7 kg/m2. General: He is alert, oriented x3. No acute distress. Answering questions appropriately. Speech is clear. HEENT: Pale conjunctivae. No icterus. Pupils are sluggish and unequal. Neck: Supple. Lungs: Clear to auscultation. Cardiovascular: Regular rate and rhythm. Abdomen: Soft, nontender, nondistended. Active bowel sounds heard in all 4 quadrants. Extremities: No clubbing, no cyanosis. Generalized weakness on the left side in the lower extremities and upper extremities. Neurological: Alert, oriented x3. Weakness on the left side and slight vision problems. LABORATORY DATA: WBCs are 7.56, RBCs 5.80, hemoglobin is 16.2, hematocrit is 49.3, platelet count is 181,000. Sodium is 140, potassium is 3.9, chloride is 102, carbon dioxide is 25, anion gap is 13, BUN is 20, creatinine is 1.0, glucose is 79, calcium is 9.2. Total bilirubin 0.63, AST 23, ALT 20, alkaline phos 47, albumin is 3.9. IMPRESSION AND PLAN: 1. Dysphagia. 2. CVA with left-sided weakness. 3. CAD s/p stent placement. 4. History of atrial fibrillation. 5. Hypertension. PLAN: Mr. Calvin is a 59-year-old male who had a recent stroke. GI has been consulted for his dysphagia related to his stroke and possible PEG tube placement. The patient currently is n.p.o. He is receiving PPIs daily, IV fluids normal saline at 75 mL, Zithromax at 250 mL. The patient's modified barium swallow has shown that he has cricopharyngeal spasm, delay of bolus propagation with pooling of barium in the piriform sinuses, penetration of pudding consistency barium and mild aspiration of the thin liquid barium. We have discussed with the patient the possibilities of an EGD with dilation or EGD with a PEG tube placement. Discussed the risks, benefits and alternatives of the procedure. Further plan of care will be based on the EGD findings. We will continue to monitor the patient and follow the plan of care per PCP. This plan was discussed with Dr. Merritt. Thank you for your consult. Please call us for any further questions or concerns. Dictated by STEVE Soni for Elvin Merritt MD cc: Elvin Merritt MD I have seen and examined the patient myself and I agree with the above plan of care. Please call us with any further questions or concerns. [facility]
[2020-01-03] MEDS: TORADOL IV SCH ×3 (11:14→23:57)
--- NOTE | 2020-01-03 12:32 | PROGRESS NOTE ---
DATE: 01/03/2020 INTERVAL HISTORY: The patient's nausea is well controlled. Left-sided weakness is improving slowly. The patient did very poorly with a barium swallow yesterday so GI has been consulted for possible PEG placement. No new complaints. No acute events overnight. REVIEW OF SYSTEMS: Twelve point review of systems negative except as per interval history. VITAL SIGNS: T-max 98.7 degrees, pulse 64, respirations 16, blood pressure 167/89, O2 saturation 98% on room air. PHYSICAL EXAMINATION: General: No acute distress. Vital signs: As above. HEENT: Normocephalic, atraumatic. Slightly asymmetry pupils with right bigger than left. Slightly less asymmetric than yesterday. Cardiovascular: Regular rate and rhythm. No murmurs noted. Pulmonary: Clear to auscultation bilaterally. No wheezing, rales, or rhonchi. Abdomen: Soft, nontender, nondistended. Bowel sounds positive. Extremities: Peripheral pulses intact. No clubbing or cyanosis. Neurologic: The right pupil remains slightly larger than the left. Horizontal nystagmus approximately stable. Speech remains clear. Still a little bit of weakness on the left. Psychiatric: Awake, alert, oriented x3. Cooperative, conversant. ASSESSMENT AND PLAN: 1. Subacute stroke with lateral medullary syndrome. Dizziness and ataxia much improved. Slurred speech is essentially resolved. Nystagmus still fairly significant. Did extremely poorly on barium swallow yesterday. Patient remains n.p.o. and GI has been consulted for likely PEG placement. Once that is done, assuming there are no issues with it, then he can likely be discharged home. Discussed with patient that barium swallow could be repeated in a few weeks to see if it is improving and if he could be cleared for normal p.o. intake. 2. Dysphasia secondary to stroke as above. Continue n.p.o. 3. Otitis media, largely resolved on azithromycin. We will continue 1 or 2 more days and then antibiotics. 4. Paroxysmal atrial fibrillation. Has been largely normal sinus rhythm. Continue Eliquis, metoprolol, and sotalol. 5. Acute kidney injury, resolved.
--- NOTE | 2020-01-03 13:39 | NEUROLOGY PROGRESS NOTE ---
DATE: 01/03/2020 Mr. Calvin reports feeling unsteady with gait and requiring assistance, but he believes gait is a little bit better than yesterday. He has tolerated patching the left eye to improve vision. He has not vomited. He reports he is able to swallow broth when he is careful. There is no new neurologic problem. We discussed his risk factors for cerebrovascular ischemic problems. I encouraged him to be aggressive with management of those. I encouraged him to be very careful with swallowing and with gait. We discussed his prior headaches and his frequent use of abortive medicines for headache management and I cautioned him to be careful with adding products containing aspirin while taking Eliquis. He reports he had reduced caffeine to 2 cups of half caffeinated coffee daily a year or so ago, and he tolerated that. I pointed out the presence of caffeine in the [place] he has been taking frequently for management of headache. I offered to see him later as an outpatient if headache continues to be an issue. Thanks for asking Neurology to see Mr. Calvin. cc: MD VERN Mccall III
[2020-01-03] MEDS: SYMBICORT 160/4.5 MICROGM INHALER INH SCH (15:56)
[2020-01-03] MEDS: ZITHROMAX 500 MG/NS 500 MG/250 ML IVPB IV SCH (18:38)
[2020-01-03] MEDS: LIPITOR PO SCH (23:20)
[2020-01-03] MEDS: LOFIBRA PO SCH (23:20)
[2020-01-04] MEDS: LOPRESSOR IV SCH ×5 (02:43→17:09)
[2020-01-04] MEDS: NS 1,000 ML IV SCH (04:46)
[2020-01-04] MEDS: LOVENOX SUBQ SCH ×2 (04:57→17:09)
[2020-01-04] MEDS: TORADOL IV SCH ×2 (05:05→10:58)
[2020-01-04] MEDS ORDERED: XYLOCAINE-MPF 2% ONE (06:59)
[2020-01-04] MEDS ORDERED: DIPRIVAN 1% ONE ×2 (06:59→09:29)
[2020-01-04] MEDS: PRILOSEC PO SCH (07:07)
[2020-01-04] MEDS: SYMBICORT 160/4.5 MICROGM INHALER INH SCH (08:06)
[2020-01-04] MEDS: BETAPACE PO SCH (08:27)
[2020-01-04] MEDS: ASPIRIN PO SCH (08:27)
[2020-01-04] MEDS: ZYLOPRIM PO SCH (08:28)
[2020-01-04] MEDS: WELLBUTRIN SR PO SCH ×2 (08:28→20:08)
[2020-01-04] MEDS: NORVASC PO SCH (08:28)
[2020-01-04] MEDS: PRINZIDE 10/12.5MG PO SCH (08:28)
[2020-01-04] MEDS ORDERED: VANCOMYCIN 1 GM/NS 1 GM/250 ML IVPB IV ONE (09:25)
--- NOTE | 2020-01-04 09:47 | ENDOSCOPY OPERATIVE NOTE ---
[facility] ENDOSCOPY OPERATIVE NOTE , EGD WITH PEG PROCEDURE REPORT EXAM DATE: 01/04/2020 PATIENT NAME: Lewis Calvin MR #: [id number] BIRTHDATE: 1960 ATTENDING: Dixon Saeed MD STATUS: inpatient INFRASTRUCTURE SOFTWARE ENGINEER: INDICATIONS: The patient is a 59 yr old male here for an EGD with PEG due to dysphagia, pharyngeal. PROCEDURE PERFORMED: EGD w/ percutaneous gastrostomy tube placement MEDICATIONS: Per Anesthesia TOPICAL ANESTHETIC: Xylocaine 1% CONSENT: The patient understands the risks and benefits of the procedure and understands that these r isks include, but are not limited to: sedation, allergic reaction, infection, perforation and/or bleeding. Alternative means of evaluation and treatment include, among others: physical exam, x-rays, and/or surgical intervention. The patient elects to proceed with this endoscopic procedure. HISTORY AND PHYSICAL: 01/04/2020 DESCRIPTION OF PROCEDURE: During pre-op preparation period all mechanical and medical equipment was c hecked for proper function. Hand hygiene and appropriate measures for infection prevention was taken. After the risks, benefits and alternatives of the procedure were thoroughly explained, Informed consent was verified, confirmed and timeout was successfully executed by the treatment team. The patient was anesthetized with topical anesthesia and the [id number]-[id number] ([id number]) endoscope was introduced through the mouth and advanced to the second portion of the duoden um. The instrument was slowly withdrawn as the mucosa was fully examined. ESOPHAGUS: The mucosa of the esophagus appeared normal. The z-line was noted at 43cm from the incis ors. The z-line appeared normal. STOMACH: Mild gastritis (inflammation) was found in the gastric antrum. DUODENUM: Mild duodenal inflammation was found in the duodenal bulb. The stomach was then inflated with air, and by a combination of transillumination and manual palpatio n, the site for the gastrostomy tube placement was selected and marked on the anterior abdominal wall. The skin of the a nterior abdomen was surgically prepped and draped with sterile towels. Utilizing strict sterile technique, the selected site was then anesthetized with 1% xylocaine by inje ction into the skin and subcutaneous tissue. A 1 cm incision was made through the skin and subcutaneous tissue, and the needle/cannula assembly was then passed through the abdominal wall and through the anterior wall of the stomach, anitha ntaining visualization with the endoscope. A snare device previously placed through the instrument channel wa s then opened and placed around the cannula, the needle was removed, and the insertion wire was passed through the maria elena da and into the stomach lumen. The snare was then loosened from the cannula, and repositioned to snare the insertion wire. The snare was then pulled up to the endoscope distal tip, and the scope was then withdrawn bringing with it the snare and insertion wire. The insertion wire was then released from the snare, and then loop-attached to the [place] 24 Fr gastrostomy tube. Using the "pull technique", the G-tube was then pulled into place by traction on the insertion wire a t the abdominal wall end. The G-tube insertion site was then cleansed once again, and the external bolster was placed over the tube to secure it to the abdominal wall at 3cm. Antibiotic ointment and sterile dressing was then ap plied, PEG tube placement was confirmed by direct visualization endoscopically, and the procedure terminated. Retroflexion was performed in the stomach and revealed a hiatal hernia. The gastroscope was then slo wly withdrawn and removed. ADVERSE EVENT: There were no complications. IMPRESSIONS: 1. The mucosa of the esophagus appeared normal 2. The z-line was noted at 43cm from the incisors 3. Gastritis (inflammation) was found in the gastric antrum 4. Duodenal inflammation was found in the duodenal bulb 5. Hiatus hernia RECOMMENDATIONS: 1. Vancomycin 1gm IV ordered for prophylaxis 2. PEG tube ok to use now for water and meds 3. Consult environmental planner to start enteral feeding in 4 hours 4. Routine PEG care and dressing changes daily 5. Monitor for signs of infection or bleeding. 6. Recommend PPI once daily via PEG tube. 7. GI to do PEG check in AM. REPEAT EXAM: Dixon Saeed MD eSigned: Dixon Saeed MD 01/04/2020 9:46 AM cc: CPT CODES: 84760 Upper gastrointestinal endoscopy including esophagus, stomach, and either the du odenum and/or jejunum as appropriate; with directed placement of percutaneous gastrostomy tube ICD CODES: 787.20 Dysphagia,unspecified 553.3 Diaphragmatic hernia without mention of obstruction or gangrene 535.50 Unspecified gastritis and gastroduodenitis (without hemorrhage) 535.60 Duodenitis (without mention of hemorrhage) The ICD and CPT codes recommended by this software are interpretations from the data that the [facility] staff has captured with the software. The verification of the translation of this report to the ICD and CPT co ashok and modifiers is the sole responsibility of the health care institution and practicing physician where this report was generated. [employer] will not be held responsible for the validity of the ICD and CPT codes i ncluded on this report. A assumes no liability for data contained or not contained herein. CPT is a registered tra demark of the [employer]. PATIENT NAME: Lewis Calvin MR#: [id number]
--- NOTE | 2020-01-04 12:47 | NEUROLOGY PROGRESS NOTE ---
DATE: 01/04/2020 Mr. Calvin had a PEG placed and tolerated that. He is now awake, alert, attentive. Speech continues improved. He can make guttural sounds better now than a few days ago. He is tolerating having 1 eye patched to manage diplopia. We discussed possibility that he might alternate patching left eye and right eye. He continues afebrile. Systolic blood pressures have been 150s- 180s over the last 24 hours. I do not have any new suggestions from Neurology standpoint. We can treat blood pressure aggressively, continue his statin, continue anticoagulation with Eliquis, follow clinically. Thanks for asking Neurology to see Mr. Calvin. cc: MD VERN Mccall III
[2020-01-04 12:48] LABS: AGAP 13; ALB/GLOB RATIO 1.2; ALBUMIN 3.6 g/dL (3.5-5.0); ALKALINE PHOSPHATASE 49 U/L (32-122); BUN 15 mg/dL (8-22); CALCIUM 9.2 mg/dL (8.8-10.2); CHLORIDE 102 mmol/L (98-107); COSMO 277; CREATININE 0.9 mg/dL (0.7-1.2); ESTIMATED GFR > 60; GLUCOSE 74 mg/dL (70-104); GOT 35 U/L (10-34); GPT 35 U/L (10-44); MAGNESIUM 2.4 mg/dL (1.5-2.7); PHOSPHORUS 3.2 mg/dL (2.7-4.5); POTASSIUM 4.6 mmol/L (3.5-5.1); SODIUM 139 mmol/L (136-145); TCO2 24 mmol/L (25-35); TOTAL BILIRUBIN 0.59 mg/dL (0.20-1.00); TOTAL PROTEIN 6.5 g/dL (6.3-8.3)
[2020-01-04 13:07] LABS: PREALBUMIN 15.1 mg/dL (20-40)
[2020-01-04] MEDS: ZITHROMAX 500 MG/NS 500 MG/250 ML IVPB IV SCH (17:08)
[2020-01-04] MEDS ORDERED: BUSPAR PEG PRN (18:36)
--- NOTE | 2020-01-04 18:42 | PROGRESS NOTE ---
DATE: 01/04/2020 SUBJECTIVE: The patient is resting comfortably. He had his PEG tube placed this morning. OBJECTIVE: Vital Signs: Temperature 98 degrees, blood pressure 179/87, heart rate 71, respirations 18, O2 saturation 98% on room air. General: This is an elderly male lying in bed in no acute distress. Heart: S1, S2 normal. Regular rate and rhythm. Lungs: Equal air entry bilaterally. No wheezing. No rales. No rhonchi. Abdomen: Positive bowel sounds. Soft, nontender, nondistended. Extremities: No edema, no cyanosis. Neurologic: The patient is alert and oriented x3. LABS: Reviewed. ASSESSMENT AND PLAN: 1. Acute CVA with residual dysphagia. The patient had a PEG tube placed today. We will continue on aspirin. We will transition the patient back to Eliquis. We will also continue on Lipitor. 2. Hypertension. We will adjust the patient's antihypertensive regimen. 3. History of gout. Continue on allopurinol. 4. Atrial fibrillation. The patient is rate controlled. Continue on sotalol and Eliquis. 5. Disposition. The patient should be stable for discharge home tomorrow. cc: Kat Corrales MD MTDD
[2020-01-04] MEDS: BETAPACE PEG SCH (20:08)
[2020-01-04] MEDS: PRINIVIL PEG SCH (20:08)
[2020-01-04] MEDS: LIPITOR PEG SCH (20:08)
[2020-01-04] MEDS: TYLENOL PO PRN (20:08)
[2020-01-04] MEDS: LOFIBRA PEG SCH (20:08)
[2020-01-04] MEDS: NORVASC PEG SCH (20:08)
[2020-01-04] MEDS ORDERED: NORVASC PO SCH (21:00)
[2020-01-04] MEDS ORDERED: PRINIVIL PO SCH (21:00)
[2020-01-05] MEDS: ELIQUIS PEG SCH ×3 (03:27→16:33)
[2020-01-05] MEDS: PRILOSEC PEG SCH ×2 (03:27→07:11)
[2020-01-05] MEDS ORDERED: ELIQUIS PO SCH (05:00)
--- NOTE | 2020-01-05 07:27 | Diag Imaging Result Doc PS360 ---
CHEST-PORTABLE - 01/05/2020 INDICATION: dyspnea COMPARISON: 12/30/2019 FINDINGS: Stable sternotomy wires. The lungs are clear. Heart size is normal. No pneumothorax or pleural effusion. IMPRESSION: Negative exam. Electronically signed by Enrique Jj 01/05/2020 7:25 AM
[2020-01-05] MEDS: SYMBICORT 160/4.5 MICROGM INHALER INH SCH (08:04)
[2020-01-05] MEDS: APRESOLINE PEG SCH ×3 (09:27→16:33)
[2020-01-05] MEDS: ZYLOPRIM PEG SCH (09:27)
[2020-01-05] MEDS: PRINIVIL PEG SCH ×2 (09:28→20:25)
[2020-01-05] MEDS: NORVASC PEG SCH ×2 (09:28→20:25)
[2020-01-05] MEDS: ASPIRIN PEG SCH (09:28)
[2020-01-05] MEDS: BETAPACE PEG SCH ×2 (09:28→20:25)
[2020-01-05] MEDS: WELLBUTRIN SR PO SCH ×2 (09:29→20:25)
[2020-01-05 11:08] LABS: HEMATOCRIT 50.1 % (42.0-52.0); HEMOGLOBIN 16.8 g/dL (14.0-18.0); MCH 27.7 PG (27-31); MCHC 33.5 g/dL (33-37); MCV 82.7 FL (81-99); MPV 11.7 FL (7.4-10.4); RBC 6.06 XMIL (4.7-6.1); RDW 13.7 % (11.5-14.5); WBC 5.98 X1000 (4.8-10.8)
[2020-01-05 11:22] LABS: AGAP 16; ALB/GLOB RATIO 1.2; ALBUMIN 3.7 g/dL (3.5-5.0); ALKALINE PHOSPHATASE 61 U/L (32-122); BUN 13 mg/dL (8-22); CALCIUM 9.6 mg/dL (8.8-10.2); CHLORIDE 99 mmol/L (98-107); COSMO 277; CREATININE 0.9 mg/dL (0.7-1.2); ESTIMATED GFR > 60; GLUCOSE 116 mg/dL (70-104); GOT 54 U/L (10-34); GPT 48 U/L (10-44); POTASSIUM 3.8 mmol/L (3.5-5.1); SODIUM 138 mmol/L (136-145); TCO2 23 mmol/L (25-35); TOTAL BILIRUBIN 0.57 mg/dL (0.20-1.00); TOTAL PROTEIN 6.8 g/dL (6.3-8.3)
[2020-01-05] MEDS ORDERED: DULCOLAX PR ONE (13:15)
--- NOTE | 2020-01-05 13:45 | GASTROENTEROLOGY PROGRESS NOTE ---
DATE: 01/05/2020 SUBJECTIVE: Mr. Calvin is a 59-year-old, male resting in bed. The patient has denied any nausea, vomiting, or abdominal pain. He is having a PEG tube in the left upper quadrant and has feeding of Jevity at 1.5 mL at 20 ml/hr is going on. The patient is tolerating his tube feedings well. He has denied having any bowel movements today. OBJECTIVE: Vital Signs: Temperature 97.6 degrees, pulse is 80, respirations 18, blood pressure 173/94, oxygen saturation 97% on room air. The patient's weight is 201 pounds, BMI is 27.9 kg/m2. General: He is alert, oriented x3, and in no acute distress. HEENT: Pale conjunctivae. The patient has a patch on his left eye. Patient is having slight vision problems. Neck: Supple. Lungs: Clear to auscultation. Cardiovascular: Regular rate and rhythm. Abdomen: Soft, nontender, nondistended. Active bowel sounds heard in all 4 quadrants. PEG tube in place. Extremities: Generalized weakness on the left side in the lower extremities and upper extremities. Neurological: Alert, oriented x3. Weakness on the left side and slight vision problem. LABORATORY: WBCs are 5.98, RBC 6.6, hemoglobin 16.8, hematocrit is 50.1, platelet count is 166,000. Sodium 138, potassium 3.8, chloride 99, carbon dioxide 23, anion gap 16, BUN 13, creatinine is 0.9, glucose is 116, calcium is 9.6, total bilirubin 0.57, AST 54, ALT 48, alkaline phosphatase 61, albumin is 3.7. Vitamin B12 is 1620. Vitamin D 25 is 32.7, folate is 9.5. Chest x-ray showed negative exam. IMPRESSION AND PLAN: 1. Dysphagia s/p PEG tube placement. 2. CVA with left-sided weakness. 3. CAD s/p stent placement. 4. H/o atrial fibrillation. 5. Hypertension. 6. Abnormal liver function tests. PLAN: Mr. Calvin is a 59-year-old, male with a recent history of stroke. GI has placed a PEG tube yesterday and the PEG tube site had mild bleeding. Dressing changed. The tube is intact. The patient is receiving feeding of Jevity 1.5 at 20 ml/hr. The patient is currently receiving antibiotics Zithromax. He is on PPIs via PEG tube. The patient has denied having a bowel movement since the last 2 days. We will give him a Dulcolax suppository 1 dose now. The patient can follow up as an outpatient in [address] Saeed. We will continue to monitor the patient and follow the plan of care per PCP. This plan was discussed with Dr. Neumann. Please call us for any further questions or concerns. Dictated by STEVE Soni for Mary Neumann MD cc: Mary Neumann MD MTDD
[2020-01-05] MEDS: ZITHROMAX 500 MG/NS 500 MG/250 ML IVPB IV SCH (17:51)
--- NOTE | 2020-01-05 19:17 | PROGRESS NOTE ---
DATE: 01/05/2020 SUBJECTIVE: The patient is resting comfortably. He is hoping to be able to go home. OBJECTIVE: Vital Signs: Temperature 97.8 degrees, blood pressure 142/91, heart rate 75, respirations 18, O2 saturation is 96% on room air. General: This is an elderly male lying in bed in no acute distress. Heart: S1, S2 normal. Regular rate and rhythm. Lungs: Equal air entry bilaterally. Abdomen: Positive bowel sounds. Soft. There is a PEG tube in place. Extremities: No edema. No cyanosis. Neurologic: The patient is alert and oriented x3. LABORATORY DATA: Reviewed. ASSESSMENT AND PLAN: 1. Acute CVA with dysphagia. The patient is on the appropriate medications at this time. He had a PEG tube placed yesterday and he is tolerating his tube feeds without any difficulty. Lamp Shade Assembler will need to arrange for the patient's tube feeds as an outpatient on Tuesday. 2. Hypertension. Uncontrolled. We will add hydralazine. 3. History of gout. Continue on allopurinol. 4. Atrial fibrillation. The patient is rate controlled. Continue on sotalol and Eliquis. 5. Disposition. We will plan to discharge the patient home on Tuesday once arrangements have been made for his tube feedings. cc: Kat Corrales MD
[2020-01-05] MEDS: LOFIBRA PEG SCH (20:25)
[2020-01-05] MEDS: TYLENOL PO PRN (20:25)
[2020-01-05] MEDS: LIPITOR PEG SCH (20:25)
[2020-01-06] MEDS: PRILOSEC PEG SCH ×2 (05:13→06:17)
[2020-01-06] MEDS: ELIQUIS PEG SCH ×2 (05:13→17:30)
[2020-01-06] MEDS: SYMBICORT 160/4.5 MICROGM INHALER INH SCH (08:03)
[2020-01-06 08:20] LABS: AGAP 12; ALBUMIN 3.9 g/dL (3.5-5.0); BUN 14 mg/dL (8-22); CALCIUM 9.9 mg/dL (8.8-10.2); CHLORIDE 99 mmol/L (98-107); COSMO 276; CREATININE 0.9 mg/dL (0.7-1.2); ESTIMATED GFR > 60; GLUCOSE 130 mg/dL (70-104); MAGNESIUM 2.5 mg/dL (1.5-2.7); PHOSPHORUS 4.5 mg/dL (2.7-4.5); POTASSIUM 3.3 mmol/L (3.5-5.1); SODIUM 137 mmol/L (136-145); TCO2 26 mmol/L (25-35)
[2020-01-06] MEDS: ZYLOPRIM PEG SCH (09:14)
[2020-01-06] MEDS: WELLBUTRIN SR PO SCH ×2 (09:14→20:57)
[2020-01-06] MEDS: NORVASC PEG SCH ×2 (09:14→20:56)
[2020-01-06] MEDS: ASPIRIN PEG SCH (09:14)
[2020-01-06] MEDS: BETAPACE PEG SCH ×2 (09:14→20:55)
[2020-01-06] MEDS: APRESOLINE PEG SCH ×3 (09:14→17:30)
[2020-01-06] MEDS: PRINIVIL PEG SCH ×2 (09:14→20:56)
[2020-01-06] MEDS: MIRALAX PEG SCH ×2 (11:52→20:54)
--- NOTE | 2020-01-06 13:46 | GASTROENTEROLOGY PROGRESS NOTE ---
DATE: 01/06/2020 SUBJECTIVE: Mr. Calvin is a 59-year-old, male resting in bed. The patient has denied any nausea, vomiting, or abdominal pain. He has got a PEG tube in place with feeding of Jevity 1.5 at 20 mL per hour. The patient is tolerating the feeding well. He has denied having any bowel movements today. OBJECTIVE: Vital Signs: Temperature 98.1 degrees, pulse 72, respirations 18, blood pressure 124/68, oxygen saturation 95% on room air. The patient's weight is 201 pounds. BMI is 29.7 kg/m2. General: He is alert, oriented x3, and in no acute distress. HEENT: Pale conjunctivae. The patient has a patch on his left eye due to his vision problems. Neck: Supple. Lungs: Clear to auscultation. Cardiovascular: Regular rate and rhythm. Abdomen: Soft, nontender, nondistended. Active bowel sounds heard in all 4 quadrants. PEG tube in place. Extremities: No clubbing, no cyanosis. Generalized weakness in the left side in the lower extremities and upper extremities. Neurological: Alert and oriented x3. Weakness on the left side with slight vision problem. He has a patch on his left eye. Labs: WBCs are 5.98, RBCs 6.06, hemoglobin is 16.8, hematocrit is 50.1, platelet count is 166,000. Sodium is 137, potassium 3.3, chloride 99, carbon dioxide 26, anion gap 12, BUN 14, creatinine is 0.9, glucose is 130, calcium is 9.9, phosphorus 4.5. Total bilirubin is 2.5, AST is 54, ALT is 48, alkaline phosphatase is 61, albumin is 3.9. IMAGING: Patient's chest x-ray yesterday showed negative exam. IMPRESSION AND PLAN: 1. Dysphagia s/p PEG placement. 2. CVA with left-sided weakness. 3. CAD with stent placement. 4. History of atrial fibrillation. 5. Hypertension. 6. Abnormal liver function tests. PLAN: Mr. Calvin is a 59-year-old, male with a recent stroke. We have placed a PEG tube. The patient's PEG tube site is dry, clean, without any erythema or drainage. The patient is receiving feeding of Jevity 1.5 at 20 mL per hour. He has been tolerating his feedings well. He is currently on antibiotic, Zithromax. The patient has denied having any bowel movements for the last few days. We have started him on MiraLAX twice a day via PEG tube. We will continue his PPIs via PEG tube. The plan as per PCP is for the patient to be discharged tomorrow. We have advised patient to follow with Dr. Saeed as an outpatient in 4 weeks. Discussed the importance of keeping the PEG tube site clean to avoid any infection. This plan was discussed with Dr. Neumann. Please call us for any further questions or concerns. Dictated by STEVE Soni for Mary Neumann MD cc: Mary Neumann MD [facility]
[2020-01-06] MEDS ORDERED: POTASSIUM CHLORIDE 20% LIQUID PEG ONE (14:07)
--- NOTE | 2020-01-06 16:59 | PROGRESS NOTE ---
DATE: 01/06/2020 SUBJECTIVE: The patient is resting comfortably in bed. He has no complaints. OBJECTIVE: Vital Signs: Temperature 98 degrees, blood pressure 155/88, heart rate 67, respirations 19, O2 saturation 97% on room air. General: This is an elderly male lying in bed in no acute distress. Heart: S1, S2 normal. Regular rate and rhythm. Lungs: Equal air entry bilaterally. No wheezing. No rales. No rhonchi. Abdomen: Positive bowel sounds. Soft, nontender, nondistended. Extremities: No edema. No cyanosis. Neurologic: The patient is alert and oriented. LABS: Potassium 3.3, sodium 137, chloride 99, CO2 26, BUN 14, creatinine 0.9, glucose 130, phosphorus 4.5, magnesium 2.5. ASSESSMENT AND PLAN: 1. Acute cerebrovascular accident with residual dysphagia. The patient is tolerating his tube feeds without any difficulty. Continue on Lipitor, aspirin and Eliquis. 2. Paroxysmal atrial fibrillation. The patient is rate controlled. Continue on the current cardiac medications. 3. History of gout. Continue on allopurinol. 4. Hypertension. Improved. Continue on the current antihypertensive regimen. 5. Disposition. Once Chemical Test Engineer makes arrangements for the patient's tube feeds as outpatient, he can be discharged home tomorrow. cc: Kat Corrales MD
[2020-01-06] MEDS: ZITHROMAX 500 MG/NS 500 MG/250 ML IVPB IV SCH (17:29)
[2020-01-06] MEDS: LIPITOR PEG SCH (20:55)
[2020-01-06] MEDS: LOFIBRA PEG SCH (20:56)
[2020-01-07] MEDS: ELIQUIS PEG SCH (04:55)
[2020-01-07] MEDS ORDERED: PRILOSEC ORAL SUSPENSION PO SCH (07:00)
[2020-01-07 07:14] LABS: AGAP 11; ALBUMIN 3.7 g/dL (3.5-5.0); BUN 14 mg/dL (8-22); CALCIUM 9.6 mg/dL (8.8-10.2); CHLORIDE 104 mmol/L (98-107); COSMO 287; CREATININE 0.9 mg/dL (0.7-1.2); ESTIMATED GFR > 60; GLUCOSE 132 mg/dL (70-104); MAGNESIUM 2.3 mg/dL (1.5-2.7); PHOSPHORUS 4.1 mg/dL (2.7-4.5); POTASSIUM 3.6 mmol/L (3.5-5.1); SODIUM 143 mmol/L (136-145); TCO2 28 mmol/L (25-35)
--- NOTE | 2020-01-07 07:37 | EKG Report ---
Test Performed on : 01/06/2020 05:59:44 AM Test Reason : h/o afib Blood Pressure : / mmHG Vent. Rate : 074 BPM Atrial Rate : 074 BPM P-R Int : 176 ms QRS Dur : 090 ms QT Int : 428 ms P-R-T Axes : 090 072 122 degrees QTc Int : 475 ms Normal sinus rhythm. ST & T wave abnormality, consider anterolateral ischemia Prolonged QT Abnormal ECG When compared with ECG of 30-DEC-2019 09:12, (Unconfirmed) ST now depressed in Anterior leads T wave inversion now evident in Anterior leads Confirmed by Ismael TAMEZ, Williams Dasilva ([id number]) on 01/08/2020 9:39:55 AM
[2020-01-07] MEDS: SYMBICORT 160/4.5 MICROGM INHALER INH SCH (08:21)
[2020-01-07] MEDS: WELLBUTRIN SR PO SCH (08:40)
[2020-01-07] MEDS: NORVASC PEG SCH (08:40)
[2020-01-07] MEDS: MIRALAX PEG SCH (08:40)
[2020-01-07] MEDS: PRINIVIL PEG SCH (08:40)
[2020-01-07] MEDS: BETAPACE PEG SCH (08:41)
[2020-01-07] MEDS: APRESOLINE PEG SCH (08:41)
[2020-01-07] MEDS: ASPIRIN PEG SCH (08:41)
[2020-01-07] MEDS: ZYLOPRIM PEG SCH (08:41)
--- NOTE | 2020-01-07 11:23 | GASTROENTEROLOGY PROGRESS NOTE ---
DATE: 01/07/2020 SUBJECTIVE: Mr. Calvin is a 59-year-old, male resting in bed. The patient has denied any more nausea, vomiting, abdominal pain. He has a PEG tube in place with feeding of Jevity at 60 mL per hour. The patient is tolerating his feedings well. The patient did have one bowel movement yesterday. OBJECTIVE: Vital Signs: Temperature 97.6 degrees, pulse 80, respirations 16, blood pressure 151/95, oxygen saturation 96% on room air. The patient's weight is 201 pounds. BMI is 29.7 kg/m2. General: He is alert, oriented x3, and in no acute distress. HEENT: Pale conjunctivae. The patient has a patch on his left eye due to the vision problems. Neck: Supple. Lungs: Clear to auscultation. Cardiovascular: Regular rate and rhythm. Abdomen: Soft, nontender, nondistended. Active bowel sounds heard in all 4 quadrants. PEG tube in place with dressing on it. Extremities: No clubbing, no cyanosis. Generalized weakness in the left lower and upper extremities. Neurologic: Alert and oriented x3. Weakness on the left side with slight vision problems, has a patch on his left eye. Laboratory Data: WBCs of 5.98, RBCs 6.06, hemoglobin is 16.8, hematocrit is 50.1, platelet count is 166,000. Sodium 143, potassium 3.6, chloride 104, carbon dioxide 28, anion gap 11, BUN 14, creatinine is 0.9, glucose 132, calcium 9.6, phosphorus 4.1, magnesium 2.3, albumin is 3.7. IMPRESSION: 1. Dysphagia s/p PEG placement. 2. CVA. 3. CAD 4. Atrial fibrillation. 5. Elevated liver enzymes. PLAN: Mr. Calvin is a 59-year-old, male with a recent stroke. GI has placed a PEG tube. The patient is getting feeding of Jevity 1.5 at 60 mL per hour. He has been tolerating his feedings well. The patient's liver enzymes are mildly elevated. We will check his hepatitis profile and do an ultrasound of his abdomen to rule out any liver problems. The patient is on Lipitor and it can be a medication-induced liver problem. The patient is supposed to get discharged. We have advised the patient to follow us up in [address] Saeed. Also discussed the importance of keeping the PEG tube site clean to avoid any infection. We will sign off for now. Please call us for any further questions or concerns. This plan was discussed with Dr. Merritt. Dictated by STEVE Soni for Elvin Merritt MD cc: Elvin Merritt MD I have seen and examined the patient myself and I agree with the above plan of care. Please call us with any further questions or concerns. VERN
--- NOTE | 2020-01-07 12:01 | NEUROLOGY PROGRESS NOTE ---
DATE: 01/07/2020 LOCATION: Room 301. SUBJECTIVE: Mr. Calvin is tolerating his tube feedings. He reports attempts at swallowing are showing some improvement. He is tolerating the eye patch. He believes his gait is a little bit more steady day by day. I encouraged him to stop smoking cigarettes and to be aggressive with the management of his risk factors. I am optimistic that he will continue to improve and will eventually be able to swallow well enough to have the PEG removed. I do not have any new thoughts or new suggestions from a Neurology standpoint today. Thank you for asking us to see Mr. Calvin. cc: Dex Craig III, MD
--- NOTE | 2020-01-07 13:55 | PROGRESS NOTE ---
DATE: 01/07/2020 SUBJECTIVE: The patient is resting comfortably. He has no complaints. He is tolerating his tube feeds without any difficulty. OBJECTIVE: Vital Signs: Temperature 97.9 degrees, blood pressure 159/94, heart rate 87, respirations 20, O2 saturations 98% on room air. General: This is an elderly male lying in bed in no acute distress. Heart: S1, S2 normal. Regular rate and rhythm. Lungs: Clear to auscultation bilaterally. No wheezing, no rales, no rhonchi. Abdomen: Positive bowel sounds. There is a PEG tube in place. Extremities: No edema, no cyanosis. Neurologic: The patient is alert and oriented x3. LABS: Reviewed. ASSESSMENT AND PLAN: 1. Acute cerebrovascular accident with residual dysphagia. The patient is tolerating his tube feeds. Will continue on Lipitor, aspirin, and Eliquis. 2. Paroxysmal atrial fibrillation. The patient is rate controlled. Continue on the current cardiac medications. 3. Hypertension. Continue on the current antihypertensive regimen. 4. History of gout. Continue on allopurinol. 5. Status post percutaneous endoscopic gastrostomy tube insertion secondary to dysphagia. The patient is tolerating his tube feeds. The patient will follow up with Dr. Saeed in 1 month as outpatient. 6. Disposition. The patient can be discharged home once arrangements have been made through [employer] for the patient to receive his tube feeds as outpatient. cc: Kat Corrales MD
[2020-01-07] MEDS ORDERED: APRESOLINE PEG SCH (15:00)
[2020-01-07 16:39] VITALS: BP 162/88
--- NOTE | 2020-01-07 17:53 | Diag Imaging Result Doc PS360 ---
EXAM: US ABDOMEN-COMPLETE 01/07/2020 HISTORY: elevated liver enzymes TECHNIQUE: Abdominal ultrasound COMMENT: The pancreas is largely obscured. The visualized portions of the aorta and inferior vena cava are within normal limits. The liver is hyperechoic. The gallbladder is clear and nontender. There is no evidence of biliary dilatation the common bile duct measuring 4 mm. The kidneys are without evidence of hydronephrosis or mass. The spleen is not enlarged. There are splenic granulomata. There is antegrade flow in the portal vein. IMPRESSION: Hepatic steatosis. Electronically signed by Denis Cruz 01/07/2020 5:51 PM
--- NOTE | 2020-01-08 06:47 | DISCHARGE SUMMARY ---
ADMISSION DATE: 12/30/2019 DISCHARGE DATE: 01/07/2020 FINAL DISCHARGE DIAGNOSES: 1. Acute cerebrovascular accident with residual dysphagia. 2. Atrial fibrillation on chronic anticoagulation. 3. Chronic diastolic congestive heart failure. 4. Hypertension. 5. Dyslipidemia. 6. Gastroesophageal reflux disease. 7. Coronary artery disease status post coronary artery bypass graft in 2013. 8. Situational depression. CONSULTATIONS: Neurology consultation with Dr. Craig. IMAGIN. Portable chest x-ray performed on 12/30/2019, which revealed no acute pathology. 2. Head CT performed on 12/30/2019, which revealed a low dense lesion in the ene on the right. 3. Echocardiogram performed on 12/30/2019, which revealed mild mitral regurgitation and EF is 65%. 4. A brain MRA performed on 12/31/2019, which revealed no acute findings. 5. Brain MRI performed on 12/31/2019, which revealed restricted diffusion involving the posterior aspect of the medulla on the left just inferior to the inferior cerebellar peduncle consistent with an acute infarct. 6. Abdominal ultrasound performed on 01/07/2020, which revealed hepatic steatosis. HOSPITAL COURSE: Mr. Calvin is a 59-year-old male with a history of multiple medical problems who presented to the ER with dizziness and an unstable gait. The patient was admitted to the hospitalist service. A head CT was done that revealed a low dense lesion in the ene on the right. This was later followed up with an MRI of the brain that confirmed that the patient had an acute infarction. Neurology was consulted. The patient was continued on Eliquis, aspirin and Lipitor. A swallow evaluation was done and a modified barium swallow revealed that the patient was aspirating. This was discussed with the patient and it was recommended that the patient have a PEG tube placed. GI was consulted and agreed with placing a PEG tube in the patient. On January 04, 2020, the patient had a percutaneous gastrostomy tube placed. The EGD did reveal mild gastritis. The following day, tube feeds were initiated and titrated. The patient tolerated the tube feeds without any difficulty. The patient had an abdominal ultrasound done that revealed hepatic steatosis. [facility] was consulted for assistance with helping the patient to obtain the tube feeds upon discharge. All of these arrangements were confirmed and made on 01/07/2020. At this time, the patient is medically stable for discharge home. DISCHARGE MEDICATIONS: 1. Eliquis 5 mg via the PEG twice a day. 2. Norvasc 5 mg via PEG twice a day. 3. Hydralazine 25 mg via PEG 3 times a day. 4. Aspirin 81 mg via PEG daily. 5. Lisinopril 20 mg via PEG twice a day. 6. Allopurinol 100 mg via PEG daily. 7. Lipitor 40 mg via PEG daily. 8. Wellbutrin SR 100 mg via PEG twice a day. 9. Buspirone 5 mg via PEG 3 times a day p.r.n. for anxiety. 10. Vitamin D 5000 units via PEG as directed. 11. Sotalol 80 mg via PEG twice a day. 12. Fenofibrate 160 mg via PEG at bedtime. 13. Symbicort 2 puffs inhaled daily. 14. Omeprazole 20 mg via PEG daily. 15. Vitamin B12, 1000 mcg subcutaneous every 12 weeks. 16. ProAir 2 puffs daily p.r.n. for shortness of breath. DISCHARGE DIET: Jevity 1.5, bolus feedings 240 mL to be given 6 times a day via the feeding tube with 90 mL flush before and after each feeding. DISCHARGE INSTRUCTIONS: The patient will need to follow up with Dr. Saeed on 02/04/2020 at 10:30 a.m. The patient will need to follow up with Dr. Craig on 04/01/2020 at 10 a.m. The patient will need to follow up with Dr. Orta in 2 weeks. cc: Kat Corrales MD
[2020-01-08 12:43] LABS: HEPATITIS PROFILE ACUTE SEE COMMENTS
[2020-01-16] MEDS ORDERED: CYANOCOBALAMIN IM SCH (09:00)
== END 2020-01-07 17:02 | disposition home health service (06) | DRG 65 ==
LOC: SUPCPDRO → ED 08:50 → SUATTDRO 15:25 → 2N 15:25 → 3N 01-01 18:46
PROVIDERS: ATTEND Internal Medicine